=== PATIENT | female | born 1970 | race Hispanic/Latino ===

== ENCOUNTER 2019-05-05 13:24 | Emergency (ER) | payer OTHER ==
[2019-05-05] MEDS ORDERED: ATROVENT IH ONE ×2 (13:33→13:57)
[2019-05-05] MEDS ORDERED: PROVENTIL IH ONE ×2 (13:33→13:57)
[2019-05-05] MEDS ORDERED: SOLU-Medrol IV ONE (13:35)
--- NOTE | 2019-05-05 13:36 | Event Note ---
ED Screening Note Date of service: 05/05/19 Time: 13:33 ED Screening Note: 48 y o f with hx of copd presents with resp distress This initial assessment/diagnostic orders/clinical plan/treatment(s) is/are subject to change based on patients health status, clinical progression and re- assessment by fellow clinical providers in the ED. Further treatment and workup at subsequent clinical providers discretion. Patient/guardian urged not to elope from the ED as their condition may be serious if not clinically assessed and managed. Initial orders include: labs, resp, solu cxr
[2019-05-05] MEDS ORDERED: MAGNESIUM SULFATE 2GM/50ML 2 GM/50 ML BAG IV ONE (13:50)
--- NOTE | 2019-05-05 14:02 | Emergency Department Report ---
HPI - General Chief Complaint: Dyspnea/Respdistress Time Seen by Provider: 05/05/19 13:32 - HPI HPI: Room 7 The patient is a 48-year-old female presenting with a chief complaint of shortness of breath. The patient has a history of COPD and states her symptoms began one week ago with a "sinus infection." The patient states she then developed chest congestion and a cough productive of yellow sputum. Patient admits to a subjective fever. Patient states she is taking [id number]-abnlbbo medication such as Margie-[place] cold and Mucinex but has not helped. Patient admits to wheezing. Location: [See above] Duration: [See above] Quality: [See above] Severity: [See above] Timing: [See above] Context: [See above] Modifying factors: [See above] Associated signs and symptoms: [see above] ED Past Medical Hx - Past Medical History Previous Medical History?: Yes Hx COPD: Yes (no home O2) Additional medical history: copd - Surgical History Past Surgical History?: No - Family History Family history: no significant - Social History Smoking Status: Current Every Day Smoker (1/2 pack per day) Substance Use Type: None (denies illicit drug use) ED Review of Systems ROS: Stated complaint: SOB/MILLIE Other details as noted in HPI Constitutional: fever (subjective) Eyes: denies: eye pain ENT: congestion Respiratory: cough, shortness of breath, wheezing Cardiovascular: denies: chest pain Endocrine: no symptoms reported Gastrointestinal: denies: abdominal pain Genitourinary: denies: dysuria Musculoskeletal: denies: back pain Neurological: headache Physical Exam - Physical Exam Vital Signs: Vital Signs 05/05/19 13:35 Pulse Rate 78 Respiratory 28 H Rate Blood Pressure 127/61 O2 Sat by Pulse 95 Oximetry Physical Exam: GENERAL: The patient is well-developed well-nourished female lying on stretcher receiving nebulizer appearing to be in mild discomfort. [] HEENT: Normocephalic. Atraumatic. Extraocular motions are intact. Patient has moist mucous membranes. NECK: Supple. Trachea midline CHEST/LUNGS: Diffuse rhonchi and wheezing. Slightly increased work of breathing HEART/CARDIOVASCULAR: Regular. There is no tachycardia. There is no gallop rub or murmur. ABDOMEN: Abdomen is soft, nontender. Patient has normal bowel sounds. There is no abdominal distention. SKIN: There is no rash. There is no edema. There is no diaphoresis. NEURO: The patient is awake, alert, and oriented. The patient is cooperative. The patient has normal speech MUSCULOSKELETAL: There is no evidence of acute injury. ED Course Vital Signs 05/05/19 13:35 Pulse Rate 78 Respiratory 28 H Rate Blood Pressure 127/61 O2 Sat by Pulse 95 Oximetry - Reevaluation(s) Reevaluation #1: 05/05/19 16:37 Patient still has increased work of breathing. Will admit to the hospital ED Medical Decision Making - Lab Data Result diagrams: 05/05/19 13:44 05/05/19 13:44 - Radiology Data Radiology results: image reviewed (chest x-ray) interpreted by me: Chest x-ray-no definite focal infiltrates, no pneumothorax - Differential Diagnosis COPD exacerbation, pneumonia, bronchitis Critical care attestation.: If time is entered above; I have spent that time in minutes in the direct care of this critically ill patient, excluding procedure time. ED Disposition Clinical Impression: COPD exacerbation Disposition: OP ADMIT IP TO THIS HOSP Is pt being admited?: Yes Does the pt Need Aspirin: No Condition: Stable Instructions: Chronic Obstructive Pulmonary Disease (ED) Time of Disposition: 16:38 (Hospitalist paged (Dr Fiore))
[2019-05-05 14:04] LABS: Basophils % (Auto) 0.2 % (0.0-1.8); Eosinophils # (Auto) 0.1 K/mm3 (0.0-0.4); Hemoglobin 14.1 gm/dl (10.1-14.3); Lymphocytes # (Auto) 2.7 K/mm3 (1.2-5.4); Lymphocytes % (Auto) 31.4 % (13.4-35.0); Mean Corpuscular HGB Conc 34 % (30-34); Mean Corpuscular Volume 85 fl (79-97); Monocytes # (Auto) 0.6 K/mm3 (0.0-0.8); Monocytes % (Auto) 6.8 % (0.0-7.3); Platelet Count 423 K/mm3 (140-440); Red Blood Count 4.97 M/mm3 (3.65-5.03); Red Cell Distribution Width 14.9 % (13.2-15.2)
[2019-05-05 14:10] LABS: BUN/Creatinine Ratio 20; Blood Urea Nitrogen 12 mg/dL (7-17); Calcium 9.9 mg/dL (8.4-10.2); Hemolysis Index 5
[2019-05-05 14:12] LABS: Creatine Kinase MB 1.9 ng/mL (0.0-4.0)
[2019-05-05 14:15] LABS: INR 1.02 (0.87-1.13)
[2019-05-05] MEDS ORDERED: NACL 0.9% 1000 ML 1,000 ML IV ONE (14:22)
--- NOTE | 2019-05-05 15:01 | XRay Report ---
CHEST 1 VIEW INDICATION: Dyspnea. COMPARISON: None FINDINGS: Support devices: None. Heart: Within normal limits. Lungs/Pleura: No acute air space or interstitial disease. Additional findings: None. IMPRESSION: No acute findings. Signer Name: Andre Kearns Jr, MD Signed: 05/05/2019 2:57 PM Workstation Name: [id number]
[2019-05-05] MEDS ORDERED: NORCO 5/325 PO ONE (16:33)
[2019-05-05] MEDS ORDERED: XOPENEX IH ONE ×2 (17:05→17:13)
[2019-05-05 18:15] VITALS: BP 108/46
== END 2019-05-05 18:30 | disposition admitted as inpatient to this hospital (09) ==
LOC: ED 13:24
DX: J44.1 Chronic obstructive pulmonary disease with (acute) exacerbation (principal); F17.200 Nicotine dependence, unspecified, uncomplicated; Z88.0 Allergy status to penicillin
CPT/HCPCS: 36415; 71045; 80048; 82140; 82550; 82553; 84484; 85025; 85610; 94644; 96361; 96365; 96375; 99284; J2930; J3475; J7030; 94640